=== PATIENT | male | born 1980 | race Caucasian/White ===

== ENCOUNTER → 2018-07-17 | Outpatient (CLI) | payer OTHER | LOC: CIMAGING 13:55 | PROVIDERS: ATTEND Family Medicine | DX: M25.471 Effusion, right ankle (principal); S93.401A Sprain of unspecified ligament of right ankle, initial encounter | CPT/HCPCS: 73600-PO ==

== ENCOUNTER → 2018-08-23 | Outpatient (CLI) | payer OTHER | LOC: CIMAGING 11:44 | PROVIDERS: ATTEND Family Medicine | DX: S99.929A Unspecified injury of unspecified foot, initial encounter (principal); M25.531 Pain in right wrist; M25.532 Pain in left wrist; M25.60 Stiffness of unspecified joint, not elsewhere classified; M65.4 Radial styloid tenosynovitis [de Quervain]; Z82.61 Family history of arthritis | CPT/HCPCS: 73630-PO ==